=== PATIENT | male | born 1975 ===

== ENCOUNTER 2017-08-14 10:54 | Observation (INO) | payer MEDICAID, OTHER ==
[2017-08-14 10:54] VITALS: BMI 25.0
[2017-08-14 11:01] VITALS: BP 131/80; PULSE 66; RESP 18; TEMP 99; O2SAT 95
--- NOTE | 2017-08-14 11:59 | C.PDOC ---
History Of Present Illness 08/14/2017 Maciel Marrufo is a 41 y/o male, whose past medical history includes substance abuse, presents to the ED requesting a detoxification. Patient reports his last use was today at 3am. Patient also complains of right foot pain after stepping on a nail four days ago. He states pain is worse when walking. Patient denies fever,numbness, weakness, shortness of breath, vomiting , headache or other complaints. Patient notes his Tetanus shot is not up to date. Time Seen by Provider: 08/14/17 11:03 Chief Complaint (Nursing): Substance Abuse History Per: Patient History/Exam Limitations: no limitations Onset/Duration Of Symptoms: Hrs (8-10 hours ago) Current Symptoms Are (Timing): Still Present Modifying Factor(s): Narcotics Associated Symptoms: Other (right foot pain due to punctured wound) Past Medical History Reviewed: Historical Data, Nursing Documentation, Vital Signs Vital Signs: Last Vital Signs Temp 99 F 08/14/17 10:55 Pulse 66 08/14/17 10:55 Resp 18 08/14/17 10:55 BP 131/80 08/14/17 10:55 Pulse Ox 95 08/14/17 13:44 - Medical History PMH: Anxiety, Asthma, Bipolar Disorder, Depression, HTN Denies: Diabetes, Hepatitis, HIV, Chronic Kidney Disease, Seizures, Sexually Transmitted Disease - [facility] Procedures CLOSURE SKIN & SUBCUTANEOUS NEC (06/21/14) DETOXIFICATION SERVICES FOR SUBSTANCE ABUSE TREATMENT (12/02/16) GROUP DRYER FEEDER FOR SUBSTANCE ABUSE TREATMENT, PSYCHOEDUCATION (12/02/16) MASTOTOMY (10/27/13) Family History: States: Unknown Family Hx - Social History Hx Tobacco Use: No Hx Alcohol Use: No Hx Substance Use: Yes - Immunization History Hx Tetanus Toxoid Vaccination: No Hx Influenza Vaccination: No Hx Pneumococcal Vaccination: No Review Of Systems Constitutional: Negative for: Fever Cardiovascular: Negative for: Chest Pain Respiratory: Negative for: Shortness of Breath Gastrointestinal: Negative for: Vomiting Musculoskeletal: Positive for: Foot Pain (right foot pain ) Psych: Positive for: Withdrawal (detox request) Physical Exam - Physical Exam Appears: Well, No Acute Distress Skin: Normal Color, Warm, Dry Head: Atraumatic, Normacephalic Eye(s): bilateral: Normal Inspection, PERRL, EOMI Cardiovascular: Rhythm Regular Respiratory: Normal Breath Sounds Extremity: Normal ROM, No Swelling, Other (punctured wound on right foot. No erythema) Neurological/Psych: Oriented x3, Normal Speech Gait: Steady ED Course And Treatment O2 Sat by Pulse Oximetry: 95 (room air) Pulse Ox Interpretation: Normal Medical Decision Making Medical Decision Makin08/14/2017 Impression: 41 y/o male requesting detox. Last opiod use was today at 3am. Additionally has a punctured wound on right foot. NROM, no erythema or swelling. Plan: -- Cipro -- Adacel -- Reassess and disposition Progress Notes: ED OBSERVATION Discharge: Yes Date of observation admission: 08/14/17 Time of observation admission: 11:30 Disposition - Disposition Disposition: HOME/ ROUTINE Disposition Time: 13:44 Condition: GOOD - Clinical Impression Clinical Impression: Opiate dependence - Scribe Statement The provider has reviewed the documentation as recorded by the Scribe 08/14/2017 Scribe Attestation: Naz Blair MD Scribe Attestation: All medical record entries made by the Scribe were at my direction and personally dictated by me. I have reviewed the chart and agree that the record accurately reflects my personal performance of the history, physical exam, medical decision making, and the department course for this patient. I have also personally directed, reviewed, and agree with the discharge instructions and disposition.
== END 2017-08-14 13:46 | disposition home or self-care (01) ==
LOC: C.ER 10:54 → C.9OBSV 12:47
PROVIDERS: ADMIT Emergency Medicine; ATTEND Emergency Medicine
DX: F11.20 Opioid dependence, uncomplicated (principal); F31.9 Bipolar disorder, unspecified; I10 Essential (primary) hypertension; J45.909 Unspecified asthma, uncomplicated; F32.9 Major depressive disorder, single episode, unspecified; F41.9 Anxiety disorder, unspecified; S91.331A Puncture wound without foreign body, right foot, initial encounter; W45.0XXA Nail entering through skin, initial encounter; Z23 Encounter for immunization
CPT/HCPCS: 90471; 90715; 99283; G0378

== ENCOUNTER 2017-08-15 08:36 | Inpatient (IN) | payer MEDICAID, OTHER ==
[2017-08-15 08:36] VITALS: BMI 25.0
[2017-08-15 10:37] LABS: BASO # 0.1 K/uL (0.0-0.2); BASO % 0.9 % (0.0-2.0); EOS # 0.2 K/uL (0.0-0.7); HEMATOCRIT 40.9 % (35.0-51.0); LYMPH # 1.8 K/uL (1.0-4.3); MEAN CELL VOLUME 84.1 fL (80.0-94.0); MEAN CORPUSCULAR HEMOGLOBIN 28.7 pg (27.0-31.0); MEAN CORPUSCULAR HGB CONC 34.2 g/dL (33.0-37.0); MEAN PLATELET VOLUME 6.5 fL (7.2-11.7); MONO # 0.5 K/uL (0.0-0.8); NRBC % 0.1 % (0.0-2.0); WHITE BLOOD COUNT 7.2 K/uL (4.8-10.8)
[2017-08-15 10:38] LABS: RBC URINE 3 /hpf (0-3); URINE BACTERIA RARE (<OCC); URINE BILIRUBIN NEGATIVE (NEGATIVE); URINE BLOOD NEGATIVE (NEGATIVE); URINE COLOR Amber (YELLOW); URINE GLUCOSE (UA) NORMAL (Normal); URINE KETONE TRACE mg/dL (NEGATIVE); URINE LEUKOCYTE ESTERASE NEG Leu/uL (Negative); URINE PROTEIN 1+ mg/dL (NEGATIVE); WBC URINE 1 /hpf (0-5)
[2017-08-15 10:42] LABS: CHLORIDE 106 mmol/L (98-107)
[2017-08-15 10:43] LABS: POTASSIUM 3.7 mmol/L (3.6-5.2); SODIUM 141 mmol/L (132-148)
[2017-08-15 10:45] LABS: ALB/GLOB RATIO 1.2 (1.0-2.1); AST/SGOT 46 U/L (17-59); BILIRUBIN,TOTAL 0.5 mg/dL (0.2-1.3); CARBON DIOXIDE 24 mmol/L (22-30); GFR AFRICAN-AMERICAN > 60; TOTAL PROTEIN 7.4 g/dL (6.3-8.3)
[2017-08-15 10:46] LABS: ALKALINE PHOSPHATASE 97 U/L (38-126); ALT/SGPT 37 U/L (21-72); BLOOD UREA NITROGEN 13 mg/dL (9-20); GLUCOSE,RANDOM 160 mg/dL (75-110)
--- NOTE | 2017-08-15 10:55 | C.PDOC ---
History Of Present Illness 41 y/o male presents to ED requesting detox from heroin and Xanax. Last use of both was today at approx 03:00. Pt denies SI/HI, or physical complaints at this time. Time Seen by Provider: 08/15/17 09:11 Chief Complaint (Nursing): Psychiatric Evaluation History Per: Patient History/Exam Limitations: no limitations Onset/Duration Of Symptoms: Gradual Current Symptoms Are (Timing): Still Present Suicide/Self Injury Attempted (Context): None Modifying Factor(s): Narcotics, Other (xanax) Associated Symptoms: denies: Suicidal Thoughts, Suicidal Plan Involuntary Hold By: None Additional History Per: Patient Past Medical History Reviewed: Historical Data, Nursing Documentation, Vital Signs Vital Signs: Last Vital Signs Temp 97.8 F 08/19/17 08:54 Pulse 65 08/19/17 08:54 Resp 20 08/19/17 08:54 BP 132/84 08/19/17 08:54 Pulse Ox 97 08/19/17 10:29 - Medical History PMH: Anxiety, Asthma, Bipolar Disorder, Depression, HTN - [facility] Procedures CLOSURE SKIN & SUBCUTANEOUS NEC (06/21/14) DETOXIFICATION SERVICES FOR SUBSTANCE ABUSE TREATMENT (12/02/16) GROUP MAINTENANCE CHIEF FOR SUBSTANCE ABUSE TREATMENT, PSYCHOEDUCATION (12/02/16) MASTOTOMY (10/27/13) Family History: States: No Known Family Hx - Social History Hx Tobacco Use: No Hx Alcohol Use: No Hx Substance Use: Yes (heroin and xanax) - Immunization History Hx Tetanus Toxoid Vaccination: No Hx Influenza Vaccination: No Hx Pneumococcal Vaccination: No Review Of Systems Except As Marked, All Systems Reviewed And Found Negative. Constitutional: Negative for: Fever, Chills Cardiovascular: Negative for: Chest Pain, Palpitations Respiratory: Negative for: Cough, Shortness of Breath Gastrointestinal: Negative for: Nausea, Vomiting, Abdominal Pain Musculoskeletal: Negative for: Neck Pain, Back Pain Skin: Negative for: Rash, Bruising Neurological: Negative for: Headache, Dizziness Psych: Negative for: Suicidal ideation Physical Exam - Physical Exam Appears: Well, Non-toxic, No Acute Distress Skin: Warm, Dry Head: Normacephalic Eye(s): bilateral: Normal Inspection Oral Mucosa: Moist Neck: Supple Cardiovascular: Rhythm Regular Respiratory: Normal Breath Sounds, No Accessory Muscle Use, No Rales, No Rhonchi , No Wheezing Gastrointestinal/Abdominal: Normal Exam, Bowel Sounds, Soft, No Tenderness Extremity: Normal ROM Extremity: Bilateral: Atraumatic, Normal Color And Temperature, Normal ROM Neurological/Psych: Oriented x3 Gait: Steady ED Course And Treatment - Laboratory Results Result Diagrams: 08/17/17 07:25 08/17/17 07:25 O2 Sat by Pulse Oximetry: 97 (on RA) Pulse Ox Interpretation: Normal Progress Note: Blood work, UA, UDS ordered and reviewed. Patient given Nicotine patch. He later complained of nausea and some body aches - PO Zofran and Motrin given. 12:04pm- Patient medically cleared. Pending crisis. 12:20pm - Patient accepted for detox admission by Dr. ivey. Reevaluation Time: 12:00 Reassessment Condition: Improved Disposition - Disposition Disposition: HOSPITALIZED Disposition Time: 12:23 Condition: STABLE - Clinical Impression Clinical Impression: Heroin dependence, Benzodiazepine dependence - Scribe Statement The provider has reviewed the documentation as recorded by the Scribe Roz Dickson All medical record entries made by the Scribe were at my direction and personally dictated by me. I have reviewed the chart and agree that the record accurately reflects my personal performance of the history, physical exam, medical decision making, and the department course for this patient. I have also personally directed, reviewed, and agree with the discharge instructions and disposition. Decision To Admit - Pt Status Changed To: Hospital Disposition Of: Inpatient - Admit Certification Admit to Inpatient:: After my assessment, the patient will require hospitalization for at least two midnights. This is because of the severity of symptoms shown, intensity of services needed, and/or the medical risk in this patient being treated as an outpatient. - InPatient: Physician Admission Certification: I certify that this patient requires 2 or more midnights of care for the following reason:: see notes - . Bed Request Type: Detox Admitting Physician: Venu Ivey Patient Diagnosis: Heroin dependence, Benzodiazepine dependence
[2017-08-15] MEDS ORDERED: Aluminum Hydroxide/Magnesium Hydroxide Susp (30 mL) PO PRN (13:59)
--- NOTE | 2017-08-15 14:58 | PCM.BM ---
<Mena Honeycutt - Last Filed: 08/15/17 14:55> Treatment assets and liabiliti Patient Assests: ADL independent, negotiates basic needs Patient Liabilities: relationship conflicts, substance abuse - Milieu Protocol Maintain good personal hygiene: daily Encourage regular showers, daily Remind patient to perform daily oral care, daily Assist patient to perform ADL's, every shift Encourage regular showers, every shift Remind patient to perform daily oral care, every shift Assist patient to perform ADL's Maintain personal safety: daily Educate patient to report safety concerns to staff, daily Monitor environment for contraband/sharps, every shift Educate patient to report safety concerns to staff, every shift Monitor environment for contraband/sharps Medication safety: Monitor for expected outcome, potential side effects: daily, every shift, Assess barriers to learning: daily, every shift, Assess readiness for medication education: daily, every shift <Venu Coffman - Last Filed: 08/16/17 09:46> - Diagnosis (1) Opioid use disorder, severe, dependence Status: Acute Interventions: 08/16/17 09:47 * Assess 7x/week regarding severity of withdrawal * Educate regarding risks, benefits, side effects and alternatives of medications * Use Motivational Interviewing for abstinence * Use CBT for relapse prevention * Medication management for withdrawal symptoms * Encourage medication assisted treatment * (2) Sedative, hypnotic or anxiolytic use disorder, severe, dependence Status: Acute Interventions: 08/16/17 09:47 * Assess 7x/week regarding severity of withdrawal * Educate regarding risks, benefits, side effects and alternatives of medications * Use Motivational Interviewing for abstinence * Use CBT for relapse prevention * Medication management for withdrawal symptoms * Encourage medication assisted treatment * <Abigail Barahona - Last Filed: 08/16/17 11:10> Family Contact Family involvement: Famliy/SO not involved Family contact: Patient agrees to contact - Goals for Treatment Patient goals for treatment: Complete detox and transition to outpatient co- occurring tx. with Suboxone for opioid use disorder-severe. Discharge/Continuing Care - Education Needs Education Needs: Patient Medication, Patient Diagnosis/Disease Process, Patient Coping Skills, Patient Anger Management skills, Patient Placement options, Patient Community resources - Discharge Discharge Criteria: Free of agitation, Normal sleep pattern, No longer exhibiting s/s of withdrawal, Reduction of target symptoms Discharge to:: With Family
[2017-08-16] MEDS ORDERED: Buprenorphine Hydrochloride 2 mg SL ONE ×5 (10:45→19:17)
--- NOTE | 2017-08-16 12:50 | PCM.PSYCH ---
Initial Psychiatric Evaluation - Initial Psychiatric Evaluation Type of Admission: Voluntary Legal Status: Capacity History of Present Illness and Precipitating Events: The pt is seen, chart reviewed and case discussed. He is known from previous admission. Patient is a 41 year old male, single, has 3 kids who live with their mother, is on disability, and lives alone in an apartment in [place]. He reports almost the same story last November: a dr didn't prescribe his suboxone and he is here now. He claims Dr. Zambrano, this time, allegedly refused b /c he came positive from the opioids he used in detox here (??). Of note, he used subutex which doesn't come as opioid in [facility]. Nevertheless this will be verified with [facility], and he also added that he has an appointment on Tuesday. He now uses "50" bags IV and was starting to get into withdrawal when seen this AM. Pt also admits that he uses 6 mg of Xanax a day, but states that it was originally prescribed from a psychiatrist in [place], [place]. Pt denies current use of Marijuana, alcohol, cocaine, and other illicit substances. Pt states that he has tried experimenting multiple drugs in the past. Smokes 2 ppd Past Psychiatric History: Bipolar d/o, Depression. He was diagnosed with personality d/o by the aligner typewriter previously and today, too, he displays antisocial/ borderline behavior on the floor: argumentative, splitting, help-rejecting, mood swings, anger, breaking rules... Medications: Seroquel 100mg bid, Trazadone 200mg QHS, Pristiq but he was non- compliant IP Psychiatric Facility: Once when he was 12 years old Family History: Father and brother were drug abusers, but are no longer using Medical History: Asthma, Hep C, Meniscus tears in past Allergies: Seafood Current Medications: Active Medications Generic Name Dose Route Start Last Admin Trade Name Freq PRN Reason Stop Dose Admin Al Hydrox/Mg Hydrox/Simethicone 30 ml 08/15/17 13:59 Maalox 30 Ml PO TID PRN Indigestion / Heartburn Chlordiazepoxide 25 mg 08/15/17 18:00 08/16/17 11:10 Librium PO 08/19/17 17:59 25 mg Q6 KRISTY Administration Taper Clonidine HCl 0.1 mg 08/15/17 13:59 Catapres PO Q8 PRN COWS Score More or Equal to 5 Hydroxyzine HCl 50 mg 08/15/17 14:01 08/15/17 17:50 Atarax PO 50 mg Q6H PRN Administration Anxiety Ibuprofen 600 mg 08/15/17 14:01 Motrin Tab PO Q6H PRN Pain, moderate (4-7) Loperamide HCl 2 mg 08/15/17 13:59 Imodium PO Q8 PRN Diarrhea Nicotine 1 patch 08/15/17 10:30 08/16/17 10:54 Nicoderm Cq TD 1 patch DAILY KRISTY Administration Ondansetron HCl 4 mg 08/15/17 13:59 Zofran Tab PO Q8 PRN Nausea/Vomiting Quetiapine Fumarate 100 mg 08/15/17 22:15 08/15/17 22:18 Seroquel PO Not Given HS KRISTY Trazodone HCl 100 mg 08/15/17 14:01 Desyrel PO HS PRN Insomnia Past Psychiatric History - Past Psychiatric History Previous Treatment History: Inpatient (age 12) Pertinent Medical Hx (Current Medical&Sleep Prob, Allergies): Allergies Allergy/AdvReac Type Severity Reaction Status Date / Time seafood Allergy Uncoded 08/15/17 08:55 Alprazolam [Xanax] 2 mg PO TID 03/01/16 Review of Systems - Neurological Neurological: UNREMARKABLE - Psychiatric Psychiatric: Abnormal Sleep Pattern, Difficulty Concentrating, Irritability, Mood Swings. absent: Hallucinations, Homicidal Ideation, Paranoia, Suicidal Ideation Mental Status Examination - Personal Presentation Personal Presentation: Looks stated age - Affect Affect: Constricted - Motor Activity Motor Activity: Psychomotor Agitation - Reliability in Providing Information Reliability in Providing Information: Good - Speech Speech: Organized - Mood Mood: Anxious, Other (angry) - Formal Thought Process Formal Thought Process: No Impairment - Cognitive Functions Orientation: Person, Place, Situation, Time Sensorium: Alert Attention/Concentration: Attentive Estimate of Intelligence: Average Judgement: Intact, as evidence by: Insight regarding need for hospitalization Memory: Recent intact, as evidence by: Ability to recall events of the day, Remote intact, as evidenced by: Abilit to recall sig. life events - Risk Risk: Withdrawal, Diminished functioning - Strength & Assets Inventory Strength & Assets Inventory: Cooperative DSM 5 DX - DSM 5 DSM 5 Diagnosis: Primary: Opioid withdrawal, uncomplicated Opioid use d/o - severe Sedative, hypnotic or anxiolytic use d/o, severe Bipolar d/o unspecified Personality d/o - unspecified r/o antisocial/borderline PDs. - Recommended/Plan of Treatment Treatment Recommendations and Plan of Treatment: Subutex detox As needed medications Gabapentin for augmentation Attend groups and activities Supportive therapy and psychoeducation AL for abstinence CBT for relapse prevention Encourage MAT again Refer to rehab Attend self-help groups as well 34 min Projected ELOS: 5 days Prognosis: fair due to [place] Discharge Plan and Discharge Criteria: No wdw sx Refer to rehab or MAT - Smoking Cessation Smoking Cessation Initiated: Yes
--- NOTE | 2017-08-16 17:43 | PCM.RRT ---
PILOT SUBMERSIBLE Nurses Assessment - Situation Date: 08/16/17 Time PILOT SUBMERSIBLE was called: 17:11 PILOT SUBMERSIBLE Responder Arrival Time:: 17:12 PILOT SUBMERSIBLE Location:: Med/Detox Room Number: 760A PILOT SUBMERSIBLE Reason for Call: Change in Mental Status (syncope, fall, ) PILOT SUBMERSIBLE Called By: RN - Neurological Status (Select all that apply): Confused - Constitutional Appears: Confused - Head Head Exam: NORMAL INSPECTION, NORMOCEPHALIC - Eyes Eye Exam: EOMI, Normal appearance, PERRL - Respiratory Exam Respiratory Exam: Clear to Ausculation Bilateral, NORMAL BREATHING PATTERN. absent: Decreased Breath Sounds - Cardiovascular Exam Cardiovascular Exam: REGULAR RHYTHM - GI/Abdominal Exam GI & Abdominal Exam: Soft, Normal Bowel Sounds. absent: Distended, Tenderness - Neurological Exam Neurological Exam: Alert, Awake, Oriented x3 Additional exam: Walked to bed with assistance - Extremities Exam Extremities Exam: Normal Inspection. absent: Pedal Edema, Tenderness Plan - Assessment of Findings&Treatment Plan House Doctor responding to PILOT SUBMERSIBLE Patient was ambulating when the nurse heard the patient fall. He was found supine. Nurse denied any convulsions, shaking, tongue biting, urinary or bowel incontinence. Patient was disoriented on exam. He was not aware that he fell. He stated he walked and felt dizzy and next thing he knew he was on the floor. During exam, patient became nauseous, vomited, nonbloody, nonbilious. Zofran ODT was administered. Patient admitted for opioid withdrawal. Vitals were stable. Neuro Exam intact, generalized weakness, was walked to bed with assistance. Vitals and labs reviewed from day prior - WNL Head CT w/o contrast ordered CBC, CMP, MAG, PHOS, PROCAL STAT AM labs ordered for tomorrow Baudilio WARNER, PGY-1
[2017-08-16 17:47] LABS: CHLORIDE 105 mmol/L (98-107)
[2017-08-16 17:48] LABS: POTASSIUM 3.8 mmol/L (3.6-5.2); SODIUM 139 mmol/L (132-148)
[2017-08-16 17:50] LABS: ALB/GLOB RATIO 1.2 (1.0-2.1); ALKALINE PHOSPHATASE 96 U/L (38-126); ALT/SGPT 38 U/L (21-72); AST/SGOT 48 U/L (17-59); BASO % 0.4 % (0.0-2.0); BILIRUBIN,TOTAL 0.9 mg/dL (0.2-1.3); BLOOD UREA NITROGEN 13 mg/dL (9-20); CARBON DIOXIDE 21 mmol/L (22-30); EOS % 0.6 % (0.0-4.0); GFR AFRICAN-AMERICAN > 60; GLUCOSE,RANDOM 108 mg/dL (75-110); HEMATOCRIT 43.5 % (35.0-51.0); LYMPH # 1.3 K/uL (1.0-4.3); LYMPH % 15.2 % (20.0-40.0); MEAN CELL VOLUME 82.4 fL (80.0-94.0); MEAN CORPUSCULAR HEMOGLOBIN 28.6 pg (27.0-31.0); MEAN CORPUSCULAR HGB CONC 34.7 g/dL (33.0-37.0); MEAN PLATELET VOLUME 6.5 fL (7.2-11.7); MONO # 0.4 K/uL (0.0-0.8); MONO % 5.3 % (0.0-10.0); PHOSPHOROUS 3.2 mg/dL (2.5-4.5); RED CELL DISTRIBUTION WIDTH 13.5 % (11.5-14.5); TOTAL PROTEIN 7.8 g/dL (6.3-8.3); WHITE BLOOD COUNT 8.4 K/uL (4.8-10.8)
[2017-08-16 17:51] LABS: CALCIUM 9.3 mg/dl (8.6-10.4); MAGNESIUM 1.6 mg/dL (1.6-2.3)
--- NOTE | 2017-08-16 19:31 | CT ---
EXAM: CT Head Without Intravenous Contrast EXAM DATE/TIME: Exam ordered 08/16/2017 5:15 PM CLINICAL HISTORY: 41 years old, male; Condition or disease; Headache; Tension; Additional info: Syncope TECHNIQUE: Axial computed tomography images of the head/brain without intravenous contrast. All CT scans at this facility use one or more dose reduction techniques, viz.: automated exposure control; ma/kV adjustment per patient size (including targeted exams where dose is matched to indication; i.e. head); or iterative reconstruction technique. COMPARISON: No relevant prior studies available. FINDINGS: Brain: Unremarkable. No hemorrhage. No significant white matter disease. No edema. Ventricles: Unremarkable. No ventriculomegaly. Bones/joints: Unremarkable. No acute fracture. Soft tissues: Unremarkable. Sinuses: There because of thickening is noted within the ethmoid air cells bilaterally. . Mucosal thickening is noted within the maxillary sinuses bilaterally. Mastoid air cells: Unremarkable as visualized. No mastoid effusion. Orbits: There's an eyebrow piercing on the left. Nasopharynx: deviation of the nasal septum towards the left. Dental: The patient is edentulous. IMPRESSION: 1. No acute findings intracranially 2. Chronic sinusitis involving the ethmoid and maxillary sinuses.
[2017-08-17] MEDS ORDERED: Buprenorphine Hydrochloride 2 mg SL ONE ×2 (02:30→03:56)
[2017-08-17 07:33] LABS: BASO # 0.1 K/uL (0.0-0.2); BASO % 0.8 % (0.0-2.0); EOS % 0.1 % (0.0-4.0); HEMATOCRIT 42.8 % (35.0-51.0); LYMPH # 1.3 K/uL (1.0-4.3); LYMPH % 13.8 % (20.0-40.0); MEAN CELL VOLUME 81.4 fL (80.0-94.0); MEAN CORPUSCULAR HEMOGLOBIN 28.4 pg (27.0-31.0); MEAN CORPUSCULAR HGB CONC 34.9 g/dL (33.0-37.0); MEAN PLATELET VOLUME 6.6 fL (7.2-11.7); MONO # 0.5 K/uL (0.0-0.8); MONO % 5.3 % (0.0-10.0); RED CELL DISTRIBUTION WIDTH 13.5 % (11.5-14.5); WHITE BLOOD COUNT 9.4 K/uL (4.8-10.8)
[2017-08-17 08:09] LABS: CHLORIDE 100 mmol/L (98-107); POTASSIUM 3.8 mmol/L (3.6-5.2); SODIUM 140 mmol/L (132-148)
[2017-08-17 08:11] LABS: ALB/GLOB RATIO 1.2 (1.0-2.1); ALKALINE PHOSPHATASE 83 U/L (38-126); AST/SGOT 38 U/L (17-59); BILIRUBIN,TOTAL 0.8 mg/dL (0.2-1.3); CARBON DIOXIDE 24 mmol/L (22-30); GFR AFRICAN-AMERICAN > 60; TOTAL PROTEIN 7.7 g/dL (6.3-8.3)
[2017-08-17 08:12] LABS: ALT/SGPT 31 U/L (21-72); BLOOD UREA NITROGEN 16 mg/dL (9-20); CALCIUM 9.2 mg/dl (8.6-10.4); GLUCOSE,RANDOM 122 mg/dL (75-110); PHOSPHOROUS 3.2 mg/dL (2.5-4.5)
[2017-08-17 08:13] LABS: MAGNESIUM 1.7 mg/dL (1.6-2.3)
[2017-08-17] MEDS ORDERED: Buprenorphine Hydrochloride 2 mg SL SCH (09:30)
[2017-08-17] MEDS: Buprenorphine Hydrochloride 2 mg SL SCH ×3 (10:42→17:38)
--- NOTE | 2017-08-17 15:00 | PCM.PYCHPN ---
Psychiatric Progress Note - Psychiatric Progress Note Patient seen today, length of contact: 16 min Patient Chief Complaint: "I was throwing up all night" Problems Identified/Issues Discussed: Pt is seen, chart reviewed, case discussed with staff. Pt is very lethargic with depressed mood and has to be coaxed to get out of bed and speak with doctor. He reports that he tried to take his medications but immediately vomited all of them up, stating "I couldn't help it." He reports that he wasn't able to sleep all night due to severe nausea and vomiting. He denies symptoms of benzodiazepine withdrawal at this time. He needs more time to stabilize. He requested that his Subutex be given as three individual pills at different times throughout the day because "they are too much for my mouth." Support and psychoeducation given, CBT and ID used briefly. After care discussed. He plans to follow up with [facility]. Medication Change: Yes (Detox medications change daily) Medical Record Reviewed: Yes Mental Status Examination - Cognitive Function Orientation: Person, Place, Situation, Time Memory: Intact Attention: Poor Concentration: Poor Association: WNL Fund of Knowledge: WNL - Mood Mood: Depressed, Other (Agitated) - Affect Affect: Constricted - Speech Speech: Appropriate - Formal Thought Process Formal Thought Process: No Impairment - Suicidal Ideation Suicidal Ideation: No - Homicidal Ideation Homicidal Ideation: No Goal/Treatment Plan - Goal/Treatment Plan Need for Continued Stay: Discharge may exacerbated symptoms, Severe functional impairment Progress Toward Problem(s) and Goals/Treatment Plan: Subutex detox Librium detox As needed medications Gabapentin for augmentation Attend groups and activities Supportive therapy and psychoeducation ID for abstinence CBT for relapse prevention Encourage MAT again Refer to rehab Attend self-help groups as well 16 min Estimated Date of D/C: 08/19/17 (Pt needs more time to stabilize) - Smoking Cessation Smoking Cessation Initiated: No
[2017-08-18] MEDS: Buprenorphine Hydrochloride 2 mg SL SCH ×2 (09:47→18:34)
--- NOTE | 2017-08-18 11:22 | PCM.PYCHPN ---
Psychiatric Progress Note - Psychiatric Progress Note Patient seen today, length of contact: 15 min Patient Chief Complaint: "I'm starting to feel better" Problems Identified/Issues Discussed: Pt is seen, chart reviewed, case discussed with staff. Pt is compliant with medications and reports no side effects. He was able to successfully get all of his meds down yesterday without vomiting. He continues to report of some nausea and vomiting, though his sleep is improving. Symptoms are improving but pt needs more time to stabilize. Support and psychoeducation given, CBT and GA used briefly. After care discussed. He is prepared for discharge on Tuesday and will go directly to [facility] where he will attend substance use groups and use MAT. He states he is "more prepared" to stay clean since last detox. Medication Change: Yes (Detox medications change daily) Medical Record Reviewed: Yes Mental Status Examination - Cognitive Function Orientation: Person, Place, Situation, Time Memory: Intact Attention: WNL Concentration: WNL Association: WNL Fund of Knowledge: WNL - Mood Mood: Depressed - Affect Affect: Constricted - Speech Speech: Appropriate - Formal Thought Process Formal Thought Process: No Impairment - Suicidal Ideation Suicidal Ideation: No - Homicidal Ideation Homicidal Ideation: No Goal/Treatment Plan - Goal/Treatment Plan Need for Continued Stay: Discharge may exacerbated symptoms, Severe functional impairment Progress Toward Problem(s) and Goals/Treatment Plan: Subutex detox Librium detox As needed medications Gabapentin for augmentation Attend groups and activities Supportive therapy and psychoeducation GA for abstinence CBT for relapse prevention Encourage MAT again Refer to rehab Attend self-help groups as well 15 min Estimated Date of D/C: 08/19/17 (Pt needs more time to stabilize)
[2017-08-18] MEDS ORDERED: Buprenorphine Hydrochloride 2 mg SL ONE (14:00)
[2017-08-19 08:48] LABS: RBC URINE 1 /hpf (0-3); URINE BACTERIA RARE (<OCC); URINE BILIRUBIN NEGATIVE (NEGATIVE); URINE BLOOD 1+ (NEGATIVE); URINE COLOR Amber (YELLOW); URINE GLUCOSE (UA) NORMAL (Normal); URINE KETONE NEGATIVE (NEGATIVE); URINE LEUKOCYTE ESTERASE NEG Leu/uL (Negative); URINE PROTEIN NEGATIVE (NEGATIVE); WBC URINE 5 /hpf (0-5)
[2017-08-19] MEDS: Buprenorphine Hydrochloride 2 mg SL SCH (08:52)
--- NOTE | 2017-08-19 08:52 | PCM.PYCHDC ---
Mental Status Examination - Mental Status Examination Orientation: Person, Place, Situation, Time Memory: Intact Mood: Neutral Affect: Depressed Speech: Appropriate Attention: WNL Concentration: WNL Association: WNL Fund of Knowledge: WNL Formal Thought Process: No Impairment Suicidal Ideation: No Current Homicidal Ideation?: No Discharge Summary - Discharge Note Reason for Hospitalization: Long history of opioid use disorder with desire for detox Psychiatric History (includes Medical, Family, Personal Hx): Bipolar disoder, depression, personality disorder Laboratory Data: Abnormal Lab Results 08/19/17 08:17 Urine Color [place] Urine Clarity Hazy Urine pH 5.0 Ur Specific [place] 1.026 Urine Protein Negative Urine Glucose (UA) Normal Urine Ketones Negative Urine Blood 1+ H Urine Nitrate Negative Urine Bilirubin Negative Urine Urobilinogen 4.0 Ur Leukocyte Esterase Neg Urine WBC (Auto) 5 Urine RBC (Auto) 1 Ur Squamous Epith Cells 1 Urine Bacteria Rare Consultations:: List each consultation separately and include: 1. Reason for request. 2. Findings. 3. Follow-up Summary of Hospital Course include:: 1. Description of specific treatment plan utilized for patients during their course of treatmen. 2. Summarize the time- course for resolution of acute symptoms and/or regressed behaviors. 3. Describe issues identified and worked on during hospitalization. 4. Describe medication utilized. 5. Describe medical problems identified and treated. 6. Reassessment of suicide risk Summary of Hospital Course: Pt was admitted and started on treatment with psychotherapy, support, psychoeducation and medications. RI and CBT used. Pt attended groups and activities as well as milieu therapy. All the risks and benefits of medications were discussed and pt understood and agreed. Pt improved with the treatment provided. Pt continues to report some nausea but overall OK. He admitted that he has 8 of the 8 mg subox films at home and that he "could find anytime." [facility] has [facility] but will not see the dr right away. He asked for a last day Utox which again came positive. He was hoping for a negative urine to show to [facility]. He is advised to not use any subs without dr control. He was irate and demanding initially but then calmed down. - Final Diagnosis (DSM 5) Condition upon Discharge: STABLE DSM 5: Opioid use disorder, severe Opioid withdrawal Bzkguxkr-zdcfuuur-qzwtussnkm use disorder, severe Bipolar disorder, unspecified Personality disorder, unspecified Disposition: HOME/ ROUTINE Follow-up Treatment Plan: Continue below medications after discharge. Follow after care as discussed. Use relapse prevention skills. Return to ER or call 911 if suicidal, homicidal or symptoms relapse. Stay away from stress, alcohol and drugs. See primary doctor once a year. 16 min Prescriptions/Medication Reconciliation: Nicotine 21 mg/24 hr [Nicoderm Cq] 1 patch TD DAILY #30 patch QUEtiapine [Seroquel] 200 mg PO HS #30 tab - Smoking Cessation Smoking Cessation Medication prescribed: Yes - Antipsychotic Medications Pt discharged on 2 or more routine antipsychotic medications: No
[2017-08-19 08:57] VITALS: BP 132/84; PULSE 65; RESP 20; TEMP 97.8
[2017-08-19 09:55] VITALS: O2SAT 97
== END 2017-08-19 09:05 | disposition home or self-care (01) | DRG 744 ==
LOC: C.ER 08:36 → C.7D 12:23
PROVIDERS: ADMIT Psychiatry & Neurology Psychiatry; ATTEND Psychiatry & Neurology Psychiatry
PROC: HZ2ZZZZ Detoxification Services for Substance Abuse Treatment (ICD-10-PCS; principal; 2017-08-16)
PROC: HZ52ZZZ Individual Psychotherapy for Substance Abuse Treatment, Cognitive-Behavioral (ICD-10-PCS; 2017-08-16)
PROC: HZ42ZZZ Group Counseling for Substance Abuse Treatment, Cognitive-Behavioral (ICD-10-PCS; 2017-08-16)
PROC: HZ59ZZZ Individual Psychotherapy for Substance Abuse Treatment, Supportive (ICD-10-PCS; 2017-08-16)
PROC: HZ56ZZZ Individual Psychotherapy for Substance Abuse Treatment, Psychoeducation (ICD-10-PCS; 2017-08-16)
PROC: HZ46ZZZ Group Counseling for Substance Abuse Treatment, Psychoeducation (ICD-10-PCS; 2017-08-16)
DX: F11.23 Opioid dependence with withdrawal (principal); B19.20 Unspecified viral hepatitis C without hepatic coma; F13.20 Sedative, hypnotic or anxiolytic dependence, uncomplicated; F31.9 Bipolar disorder, unspecified; F60.2 Antisocial personality disorder; F60.3 Borderline personality disorder; F17.210 Nicotine dependence, cigarettes, uncomplicated; Z91.14 Patient's other noncompliance with medication regimen; J45.909 Unspecified asthma, uncomplicated

== ENCOUNTER 2017-11-25 07:54 | Emergency (ER) | payer MEDICAID, OTHER ==
[2017-11-25 08:00] VITALS: BMI 26.4
[2017-11-25 08:10] VITALS: BP 129/80; RESP 18
[2017-11-25 09:41] LABS: BASO # 0.1 K/uL (0.0-0.2); BASO % 0.8 % (0.0-2.0); EOS # 0.2 K/uL (0.0-0.7); EOS % 2.3 % (0.0-4.0); LYMPH # 2.1 K/uL (1.0-4.3); LYMPH % 22.6 % (20.0-40.0); MEAN CELL VOLUME 82.5 fL (80.0-94.0); MEAN CORPUSCULAR HEMOGLOBIN 28.8 pg (27.0-31.0); MEAN CORPUSCULAR HGB CONC 34.9 g/dL (33.0-37.0); MEAN PLATELET VOLUME 6.3 fL (7.2-11.7); MONO # 0.7 K/uL (0.0-0.8); MONO % 7.1 % (0.0-10.0); NEUT # 6.2 K/uL (1.8-7.0); NEUT % 67.2 % (50.0-75.0); RBC 4.86 Mil/uL (4.40-5.90); RED CELL DISTRIBUTION WIDTH 13.4 % (11.5-14.5); WHITE BLOOD COUNT 9.2 K/uL (4.8-10.8)
--- NOTE | 2017-11-25 10:08 | C.PDOC ---
History Of Present Illness 42 year old male presents to the ED for a heroin detox. He reports that he last used early this morning. Patient offers no other medical complaints. Time Seen by Provider: 11/25/17 08:07 Chief Complaint (Nursing): Substance Abuse History Per: Patient History/Exam Limitations: no limitations Onset/Duration Of Symptoms: Hrs Current Symptoms Are (Timing): Still Present Suicide/Self Injury Attempted (Context): None Modifying Factor(s): Narcotics (heroin) Severity: None Recent travel outside of the [place]: No Past Medical History Reviewed: Historical Data, Nursing Documentation, Vital Signs Vital Signs: Last Vital Signs Temp 97.8 F 11/25/17 11:38 Pulse 74 11/25/17 11:38 Resp 18 11/25/17 11:38 BP 129/80 11/25/17 11:38 Pulse Ox 95 11/25/17 12:09 - Medical History PMH: Anxiety, Asthma, Bipolar Disorder, Depression, Hepatitis, HTN Denies: Diabetes, HIV, Chronic Kidney Disease, Seizures, Sexually Transmitted Disease - [facility] Procedures CLOSURE SKIN & SUBCUTANEOUS NEC (06/21/14) DETOXIFICATION SERVICES FOR SUBSTANCE ABUSE TREATMENT (08/15/17) GROUP WHEELCHAIR VAN DRIVER FOR SUBSTANCE ABUSE TREATMENT, PSYCHOEDUCATION (08/15/17) GROUP WHEELCHAIR VAN DRIVER FOR SUBSTANCE ABUSE, COGNITIVE BEHAVIORAL (08/15/17) INDIV PSYCHOTHERAPY FOR SUBSTANCE ABUSE TREATMENT, SUPPORT (08/15/17) INDIV PSYCHOTHERAPY FOR SUBSTANCE ABUSE, COGNITIV BEHAVIORAL (08/15/17) INDIV PSYCHOTHERAPY FOR SUBSTANCE ABUSE, PSYCHOEDUCATION (08/15/17) MASTOTOMY (10/27/13) Family History: States: Unknown Family Hx - Social History Hx Tobacco Use: Yes (Heavy Smoker > 10 Cigarettes Daily; 40 cigarrettes a day) Hx Alcohol Use: No Hx Substance Use: Yes (heroin) - Immunization History Hx Tetanus Toxoid Vaccination: No Hx Influenza Vaccination: No Hx Pneumococcal Vaccination: No Review Of Systems Constitutional: Positive for: Other (Heroin Detox). Negative for: Fever, Chills Physical Exam - Physical Exam Appears: Well, No Acute Distress Skin: Normal Color, Warm, Dry, No Rash Head: Atraumatic, Normacephalic, No Tenderness Eye(s): bilateral: Normal Inspection, PERRL, EOMI Ear(s): Bilateral: Normal Nose: Normal Oral Mucosa: Moist, No Drooling Tongue: Normal Appearing Lips: Normal Appearing Teeth: Normal Dentition Gingiva: Normal Appearing Throat: Normal, No Erythema, No Exudate Neck: Normal, Normal ROM, No Step Off Deformity, Supple Lymphatic: Normal Exam, No Adenopathy Chest: Symmetrical, No Deformity, No Tenderness Cardiovascular: Rhythm Regular, No Murmur Respiratory: Normal Breath Sounds, No Rales, No Rhonchi, No Wheezing Gastrointestinal/Abdominal: Normal Exam, Bowel Sounds, Soft, No Tenderness, No Mass, No Rebound Back: Normal Inspection, No CVA Tenderness, No Muscle Spasm Extremity: Normal ROM, No Swelling Extremity: Bilateral: Atraumatic Neurological/Psych: Oriented x3, Normal Speech, Normal Cognition, Normal Motor Gait: Steady ED Course And Treatment - Laboratory Results Result Diagrams: 11/25/17 09:36 11/25/17 09:36 O2 Sat by Pulse Oximetry: 95 (RA) Pulse Ox Interpretation: Normal Medical Decision Making Medical Decision Makin Initial Impression 42 y/o male presenting for heroin detox Initial Plan: * Drug Screen * Urinalysis * Reevaluation Patient states that he does not want to wait any longer for detox and is requesting to leave. Crisis team have spoken to the patient about staying for detox admission but the patient still refuses. Disposition - Disposition Referrals: [facility] [Outside] Disposition: HOME/ ROUTINE Disposition Time: 12:10 Condition: GOOD Additional Instructions: Follow up with the medical doctor within 1-2 days. Return if worsened. Instructions: Narcotic Abuse (ED) Forms: [facility] (Danish) - Clinical Impression Clinical Impression: Drug abuse, Opiate dependence - Scribe Statement The provider has reviewed the documentation as recorded by the Moeibrocael Osullivan All medical record entries made by the Moeibrocael were at my direction and personally dictated by me. I have reviewed the chart and agree that the record accurately reflects my personal performance of the history, physical exam, medical decision making, and the department course for this patient. I have also personally directed, reviewed, and agree with the discharge instructions and disposition.
[2017-11-25 10:10] LABS: ALB/GLOB RATIO 1.1 (1.0-2.1); ALBUMIN 4.3 g/dL (3.5-5.0); ALT/SGPT 30 U/L (21-72); AST/SGOT 43 U/L (17-59); BLOOD UREA NITROGEN 20 mg/dL (9-20); CALCIUM 8.7 mg/dl (8.6-10.4); GFR AFRICAN-AMERICAN > 60; GFR NON-AFRICAN AMERICAN > 60
[2017-11-25 10:45] LABS: URINE BILIRUBIN NEGATIVE (NEGATIVE); URINE BLOOD NEGATIVE (NEGATIVE); URINE CLARITY Clear (Clear); URINE COLOR Amber (YELLOW); URINE GLUCOSE (UA) NORMAL (Normal); URINE LEUKOCYTE ESTERASE NEG Leu/uL (Negative); URINE NITRATE NEGATIVE (NEGATIVE); URINE PROTEIN NEGATIVE (NEGATIVE)
[2017-11-25 11:23] LABS: BARBITURATES, UR NEGATIVE (NEGATIVE); BENZODIAZEPINES, UR NEGATIVE (NEGATIVE); PHENCYCLIDINE, UR NEGATIVE (NEGATIVE)
[2017-11-25 11:26] LABS: OPIATES, UR POSITIVE (NEGATIVE)
[2017-11-25 11:39] VITALS: PULSE 74; TEMP 97.8
[2017-11-25 12:10] VITALS: O2SAT 95
== END 2017-11-25 12:11 | disposition home or self-care (01) ==
LOC: C.ER 07:54
DX: F11.20 Opioid dependence, uncomplicated (principal); F41.9 Anxiety disorder, unspecified; I10 Essential (primary) hypertension; F31.9 Bipolar disorder, unspecified; F17.210 Nicotine dependence, cigarettes, uncomplicated

== ENCOUNTER 2017-11-28 14:40 | Inpatient (IN) | payer MEDICAID, OTHER ==
[2017-11-28 14:41] VITALS: BMI 26.4
--- NOTE | 2017-11-28 15:43 | C.PDOC ---
History Of Present Illness 42 y/o male presents to ED requesting heroin detox and with complaints of onset nausea. Patient states last used was 12pm today and denies chest pain, sob, vomiting, back pain or any other complaints at this time. Time Seen by Provider: 11/28/17 15:29 Chief Complaint (Nursing): Substance Abuse History Per: Patient History/Exam Limitations: no limitations Onset/Duration Of Symptoms: Days Current Symptoms Are (Timing): Still Present Suicide/Self Injury Attempted (Context): None Past Medical History Reviewed: Historical Data, Nursing Documentation, Vital Signs Vital Signs: Last Vital Signs Temp 98.7 F 11/28/17 15:17 Pulse 98 H 11/28/17 15:17 Resp 20 11/28/17 15:17 BP 125/78 11/28/17 15:17 Pulse Ox 95 11/28/17 17:41 - Medical History PMH: Anxiety, Asthma, Bipolar Disorder, Depression, Hepatitis, HTN Surgical History: No Surg Hx - [facility] Procedures CLOSURE SKIN & SUBCUTANEOUS NEC (06/21/14) DETOXIFICATION SERVICES FOR SUBSTANCE ABUSE TREATMENT (08/15/17) GROUP DIRECTOR OF CLINICAL SERVICES FOR SUBSTANCE ABUSE TREATMENT, PSYCHOEDUCATION (08/15/17) GROUP DIRECTOR OF CLINICAL SERVICES FOR SUBSTANCE ABUSE, COGNITIVE BEHAVIORAL (08/15/17) INDIV PSYCHOTHERAPY FOR SUBSTANCE ABUSE TREATMENT, SUPPORT (08/15/17) INDIV PSYCHOTHERAPY FOR SUBSTANCE ABUSE, COGNITIV BEHAVIORAL (08/15/17) INDIV PSYCHOTHERAPY FOR SUBSTANCE ABUSE, PSYCHOEDUCATION (08/15/17) MASTOTOMY (10/27/13) Family History: States: No Known Family Hx - Social History Hx Tobacco Use: Yes (Heavy Smoker > 10 Cigarettes Daily; 40 cigarrettes a day) Hx Alcohol Use: No Hx Substance Use: Yes - Immunization History Hx Tetanus Toxoid Vaccination: No Hx Influenza Vaccination: No Hx Pneumococcal Vaccination: No Review Of Systems Constitutional: Negative for: Fever, Chills Cardiovascular: Negative for: Chest Pain Respiratory: Negative for: Shortness of Breath Gastrointestinal: Positive for: Nausea. Negative for: Vomiting, Abdominal Pain Skin: Negative for: Rash Psych: Negative for: Suicidal ideation Physical Exam - Physical Exam Appears: Non-toxic, No Acute Distress Skin: Warm, Dry, No Rash Head: Atraumatic, Normacephalic Eye(s): bilateral: Normal Inspection, PERRL, EOMI Oral Mucosa: Moist Neck: Normal ROM, Supple Cardiovascular: Rhythm Regular Respiratory: Normal Breath Sounds, No Rales, No Rhonchi, No Wheezing Gastrointestinal/Abdominal: Soft, No Tenderness, No Guarding, No Rebound Back: No CVA Tenderness Extremity: Normal ROM, Capillary Refill (<2 seconds ) Neurological/Psych: Oriented x3 ED Course And Treatment - Laboratory Results Result Diagrams: 11/28/17 15:50 11/28/17 15:50 O2 Sat by Pulse Oximetry: 95 (RA) Pulse Ox Interpretation: Normal Medical Decision Making Medical Decision Making: Progress: Patient is pre screened for detox medically cleared accepted by dr hernandes Disposition - Disposition Disposition: HOSPITALIZED Disposition Time: 17:39 Condition: STABLE - Clinical Impression Clinical Impression: Opiate dependence - Scribe Statement The provider has reviewed the documentation as recorded by the Scribrocael Plasencai All medical record entries made by the Scribe were at my direction and personally dictated by me. I have reviewed the chart and agree that the record accurately reflects my personal performance of the history, physical exam, medical decision making, and the department course for this patient. I have also personally directed, reviewed, and agree with the discharge instructions and disposition. Decision To Admit - Pt Status Changed To: Hospital Disposition Of: Inpatient - Admit Certification Admit to Inpatient:: After my assessment, the patient will require hospitalization for at least two midnights. This is because of the severity of symptoms shown, intensity of services needed, and/or the medical risk in this patient being treated as an outpatient. - InPatient: Physician Admission Certification: I certify that this patient requires 2 or more midnights of care for the following reason:: needs detox - . Bed Request Type: Detox Admitting Physician: Magan Hernandes Patient Diagnosis: Opiate dependence
[2017-11-28 15:56] LABS: BASO # 0.1 K/uL (0.0-0.2); BASO % 0.8 % (0.0-2.0); EOS % 0.2 % (0.0-4.0); HEMOGLOBIN 14.6 g/dL (12.0-18.0); LYMPH # 1.5 K/uL (1.0-4.3); LYMPH % 16.9 % (20.0-40.0); MEAN CELL VOLUME 82.8 fL (80.0-94.0); MEAN CORPUSCULAR HEMOGLOBIN 28.4 pg (27.0-31.0); MEAN CORPUSCULAR HGB CONC 34.3 g/dL (33.0-37.0); MEAN PLATELET VOLUME 6.3 fL (7.2-11.7); MONO # 0.6 K/uL (0.0-0.8); MONO % 6.7 % (0.0-10.0); NEUT # 6.9 K/uL (1.8-7.0); NEUT % 75.4 % (50.0-75.0); RBC 5.14 Mil/uL (4.40-5.90); RED CELL DISTRIBUTION WIDTH 13.5 % (11.5-14.5); WHITE BLOOD COUNT 9.1 K/uL (4.8-10.8)
[2017-11-28 16:21] LABS: SQUAMOUS EPITHIAL < 1 /hpf (0-5); URINE BACTERIA FEW (<OCC); URINE BILIRUBIN 1+ (NEGATIVE); URINE CLARITY Hazy (Clear); URINE COLOR Amber (YELLOW); URINE GLUCOSE (UA) NORMAL (Normal); URINE HYALINE CAST >20 /lpf (0-2); URINE NITRATE NEGATIVE (NEGATIVE); URINE PROTEIN 2+ mg/dL (NEGATIVE)
[2017-11-28 16:28] LABS: URINE BLOOD 2+ (NEGATIVE); URINE LEUKOCYTE ESTERASE TRACE Leu/uL (Negative)
[2017-11-28 16:30] LABS: BARBITURATES, UR NEGATIVE (NEGATIVE); BENZODIAZEPINES, UR NEGATIVE (NEGATIVE); OPIATES, UR POSITIVE (NEGATIVE); PHENCYCLIDINE, UR NEGATIVE (NEGATIVE)
[2017-11-28 16:30] LABS: ALB/GLOB RATIO 1.1 (1.0-2.1); ALBUMIN 4.2 g/dL (3.5-5.0); ALT/SGPT 29 U/L (21-72); AST/SGOT 33 U/L (17-59); BLOOD UREA NITROGEN 17 mg/dL (9-20); CALCIUM 8.8 mg/dl (8.6-10.4); GFR AFRICAN-AMERICAN > 60; GFR NON-AFRICAN AMERICAN > 60
[2017-11-28] MEDS ORDERED: Aluminum Hydroxide/Magnesium Hydroxide Susp (30 mL) PO PRN (18:18)
[2017-11-28] MEDS ORDERED: Buprenorphine Hydrochloride 2 mg SL ONE (18:28)
[2017-11-28] MEDS ORDERED: Buprenorphine Hydrochloride 2 mg SL SCH (19:29)
--- NOTE | 2017-11-28 20:15 | PCM.BM ---
<Jailene Kang - Last Filed: 11/28/17 20:14> Treatment Plan Problems - Problems identified on initial assessmt Potential for opiate withdrawal Date Initiated: 11/28/17 Time Initiated: 20:15 Assessment reference: NA Status: Active Treatment assets and liabiliti Patient Assests: ADL independent, negotiates basic needs, cognitively intact Patient Liabilities: substance abuse - Milieu Protocol Maintain good personal hygiene: daily Encourage regular showers, daily Remind patient to perform daily oral care, daily Assist patient to perform ADL's Conduct patient checks and document Observation sheet: Q15 minutes Maintain personal safety: every shift Educate patient to report safety concerns to staff, every shift Monitor environment for contraband/sharps Medication safety: Monitor for expected outcome, potential side effects: every shift, Assess barriers to learning: every shift, Assess readiness for medication education: every shift <Abigail Barahona - Last Filed: 11/29/17 12:40> Family Contact Family involvement: Family/SO is involved Family contact: Patient agrees to contact - Goals for Treatment Patient goals for treatment: Complete detox and transition to o/p Suboxone treatment. Discharge/Continuing Care - Education Needs Education Needs: Patient Medication, Patient Diagnosis/Disease Process, Patient Coping Skills, Patient Anger Management skills, Patient Placement options, Patient Community resources - Discharge Discharge Criteria: Free of agitation, No longer exhibiting s/s of withdrawal, Reduction of target symptoms Discharge to:: Home - Treatment Team Participation Patient/Family/SO Statement: 11/29/17 12:41 "I wanna go across the street and do Suboxone..." Discussed with Family/SO: No Was Patient/Family/SO present at Treatment Team Meeting: Yes <Venu Coffman - Last Filed: 12/02/17 14:47> - Diagnosis (1) Opioid use disorder, severe, dependence Status: Acute Interventions: 12/02/17 14:47 * Assess 7x/week regarding severity of withdrawal * Educate regarding risks, benefits, side effects and alternatives of medications * Use Motivational Interviewing for abstinence * Use CBT for relapse prevention * Medication management for withdrawal symptoms * Encourage medication assisted treatment *
--- NOTE | 2017-11-29 13:20 | PCM.PSYCH ---
Initial Psychiatric Evaluation - Initial Psychiatric Evaluation Type of Admission: Voluntary Legal Status: Capacity Chief Complaint (in patient's own words): "I need detox" History of Present Illness and Precipitating Events: The pt is seen, chart reviewed and case discussed. He is known from several previous admissions. Patient is a 42 year old male, single, has 3 kids who live with their mother, is on disability, and lives alone in an apartment in [place]. However, his and kids come by. He again claims he had problems with suboxone as he "did not understand" how he would use it and kept using heroin "50-60 bags" but still has the suboxone films at home. He allegedly took some and it did not work out. He claims he may do better if he gets the detox. He walked out of ED last week. Pt also used to take 6 mg of Xanax a day, but states that he quit "months ago" and his urine is negative. Pt denies current use of marijuana, alcohol, cocaine , and other illicit substances. Pt states that he has tried experimenting multiple drugs in the past. Smokes 2 ppd Past Psychiatric History: Bipolar d/o, Depression. He was diagnosed with personality d/o by the insurance underwriter previously and again. He displays antisocial/ borderline behavior frequently but looks calmer and more cooperative this time. Medications: Seroquel 200mg HS IP Psychiatric Facility: Once when he was 12 years old Family History: Father and brother were drug abusers, but are no longer using Medical History: Asthma, Hep C, Meniscus tears in past Allergies: Seafood Current Medications: Active Medications Generic Name Dose Route Start Last Admin Trade Name Mcq PRN Reason Stop Dose Admin Acetaminophen 650 mg 11/28/17 18:18 Tylenol 325mg Tab PO Q4H PRN Fever greater than 101 F Al Hydrox/Mg Hydrox/Simethicone 30 ml 11/28/17 18:18 Maalox 30 Ml PO TID PRN Indigestion / Heartburn Clonidine HCl 0.1 mg 11/28/17 18:18 Catapres PO Q8 PRN COWS Score More or Equal to 5 Hydroxyzine HCl 25 mg 11/28/17 18:25 11/28/17 19:08 Atarax PO 25 mg Q6 PRN Administration Agitation Loperamide HCl 2 mg 01/08/18 18:18 Imodium PO Q8 PRN Diarrhea Nicotine 1 patch 11/28/17 19:15 11/29/17 09:24 Nicoderm Cq TD 1 patch DAILY KRISTY Administration Ondansetron HCl 4 mg 11/28/17 18:18 Zofran Tab PO Q8 PRN Nausea/Vomiting Pseudoephedrine HCl 60 mg 11/28/17 18:18 Sudafed Tab PO QID PRN Nasal/Sinus Congestion Quetiapine Fumarate 200 mg 11/28/17 23:45 11/28/17 23:55 Seroquel PO 200 mg HS KRISTY Administration Past Psychiatric History - Past Psychiatric History Previous Treatment History: Intensive Outpatient Pertinent Medical Hx (Current Medical&Sleep Prob, Allergies): Allergies Allergy/AdvReac Type Severity Reaction Status Date / Time FISH Allergy Verified 11/25/17 07:59 seafood Allergy Uncoded 08/15/17 08:55 QUEtiapine [Seroquel] 200 mg PO HS #30 tab 08/19/17 Review of Systems - Neurological Neurological: UNREMARKABLE - Psychiatric Psychiatric: Abnormal Sleep Pattern, Anhedonia, Anxiety, Change in Appetite, Difficulty Concentrating, Irritability. absent: Hallucinations, Homicidal Ideation, Paranoia, Suicidal Ideation Mental Status Examination - Personal Presentation Personal Presentation: Looks stated age - Affect Affect: Constricted - Motor Activity Motor Activity: Calm - Reliability in Providing Information Reliability in Providing Information: Good - Speech Speech: Organized - Mood Mood: Anxious - Formal Thought Process Formal Thought Process: No Impairment - Cognitive Functions Orientation: Person, Place, Situation, Time Sensorium: Alert Attention/Concentration: Attentive Judgement: Intact, as evidence by: Insight regarding need for hospitalization Memory: Recent intact, as evidence by: Ability to recall events of the day, Remote intact, as evidenced by: Abilit to recall sig. life events - Risk Risk: Withdrawal, Diminished functioning - Strength & Assets Inventory Strength & Assets Inventory: Cooperative - Limitations Limitations: Living alone DSM 5 DX - DSM 5 DSM 5 Diagnosis: Opioid withdrawal Opioid use d/o - severe Sedative, hypnotic anxiolytic use d/o - severe, in remission Tobacco use d/o - severe Bipolar 1 d/o - unspecified last episode Personality d/o - unspecified - Recommended/Plan of Treatment Treatment Recommendations and Plan of Treatment: Subutex detox Seroquel 200 mg HS As needed medications Gabapentin for augmentation Attend groups and activities Supportive therapy and psychoeducation [place] for abstinence CBT for relapse prevention Encourage MAT Refer to rehab or IOP Attend self-help groups as well 34 min Projected ELOS: 4-5 days Prognosis: good w treatment - Smoking Cessation Smoking Cessation Initiated: Yes
[2017-11-29] MEDS ORDERED: Buprenorphine Hydrochloride 2 mg SL SCH (18:29)
[2017-11-29] MEDS ORDERED: Buprenorphine Hydrochloride 2 mg SL ONE ×4 (21:10→23:55)
[2017-11-30] MEDS ORDERED: Buprenorphine Hydrochloride 2 mg SL ONE ×2 (00:55→01:07)
[2017-11-30] MEDS: Buprenorphine Hydrochloride 2 mg SL SCH (10:05)
--- NOTE | 2017-11-30 11:51 | PCM.PYCHPN ---
Psychiatric Progress Note - Psychiatric Progress Note Patient seen today, length of contact: 16 mins Patient Chief Complaint: "I am not well" Problems Identified/Issues Discussed: The pt is seen, chart reviewed, case discussed with staff. Patient states he had one bout of emesis following eating. He is also complaining of constipation. He couldn't sleep last night The pt is compliant with medications and reports no side-effects. Symptoms are improving but needs more time to stabilize. After care discussed, support and psychoeducation given. Medication Change: Yes (extra sbx) Medical Record Reviewed: Yes Mental Status Examination - Cognitive Function Orientation: Person, Place, Situation, Time Memory: Intact Attention: WNL Concentration: WNL Association: WNL Fund of Knowledge: WNL - Mood Mood: Other (irate) - Affect Affect: Constricted - Speech Speech: Appropriate - Formal Thought Process Formal Thought Process: No Impairment - Suicidal Ideation Suicidal Ideation: No - Homicidal Ideation Homicidal Ideation: No Goal/Treatment Plan - Goal/Treatment Plan Need for Continued Stay: Discharge may exacerbated symptoms, Severe functional impairment Progress Toward Problem(s) and Goals/Treatment Plan: Subutex detox Seroquel 200 mg HS As needed medications Gabapentin for augmentation Attend groups and activities Supportive therapy and psychoeducation [place] for abstinence CBT for relapse prevention Encourage MAT Refer to rehab or IOP Attend self-help groups as well
[2017-12-01] MEDS: Buprenorphine Hydrochloride 2 mg SL SCH (09:20)
--- NOTE | 2017-12-01 14:44 | PCM.PYCHPN ---
Psychiatric Progress Note - Psychiatric Progress Note Patient seen today, length of contact: 16 mins Patient Chief Complaint: "I am still withdrawing" Problems Identified/Issues Discussed: The pt is seen, chart reviewed, case discussed with staff. Support given, CBT and NM used briefly No new symptoms reported, improving slowly and needs more time No SEs from medications, risks discussed. After care discussed - CRC and suboxone Medication Change: Yes (extra sbx) Medical Record Reviewed: Yes Mental Status Examination - Cognitive Function Orientation: Person, Place, Situation, Time Memory: Intact Attention: WNL Concentration: WNL Association: WNL Fund of Knowledge: WNL - Mood Mood: Other (less irate) - Affect Affect: Constricted - Speech Speech: Appropriate - Formal Thought Process Formal Thought Process: No Impairment - Suicidal Ideation Suicidal Ideation: No - Homicidal Ideation Homicidal Ideation: No Goal/Treatment Plan - Goal/Treatment Plan Need for Continued Stay: Discharge may exacerbated symptoms, Severe functional impairment Progress Toward Problem(s) and Goals/Treatment Plan: Subutex detox Seroquel 200 mg HS increased to 300 mg Zoloft started again As needed medications Gabapentin for augmentation Attend groups and activities Supportive therapy and psychoeducation [place] for abstinence CBT for relapse prevention Encourage MAT Refer to rehab or IOP Attend self-help groups as well
[2017-12-01] MEDS ORDERED: Buprenorphine Hydrochloride 2 mg SL ONE (18:00)
[2017-12-02] MEDS: Buprenorphine Hydrochloride 2 mg SL SCH ×2 (09:59→18:00)
--- NOTE | 2017-12-02 12:49 | PCM.PYCHPN ---
Psychiatric Progress Note - Psychiatric Progress Note Patient seen today, length of contact: 16 mins Patient Chief Complaint: "So so" Problems Identified/Issues Discussed: The pt is seen, chart reviewed, case discussed with staff. The pt is compliant with medications and reports no side-effects. Symptoms are improving but needs more time to stabilize. Detox extended to Tuesday AM due to ongoing sxs - he gets a PM dose of 2 mg After care discussed, support and psychoeducation given. Medication Change: Yes (extra sbx) Medical Record Reviewed: Yes Mental Status Examination - Cognitive Function Orientation: Person, Place, Situation, Time Memory: Intact Attention: WNL Concentration: WNL Association: WNL Fund of Knowledge: WNL - Mood Mood: Other (less irate) - Affect Affect: Constricted - Speech Speech: Appropriate - Formal Thought Process Formal Thought Process: No Impairment - Suicidal Ideation Suicidal Ideation: No - Homicidal Ideation Homicidal Ideation: No Goal/Treatment Plan - Goal/Treatment Plan Need for Continued Stay: Discharge may exacerbated symptoms, Severe functional impairment Progress Toward Problem(s) and Goals/Treatment Plan: Subutex detox Seroquel 200 mg HS increased to 300 mg Zoloft started again As needed medications Gabapentin for augmentation Attend groups and activities Supportive therapy and psychoeducation [place] for abstinence CBT for relapse prevention Encourage MAT Refer to rehab or IOP Attend self-help groups as well
[2017-12-03] MEDS: Buprenorphine Hydrochloride 2 mg SL SCH ×2 (09:21→17:21)
--- NOTE | 2017-12-03 10:14 | PCM.PYCHPN ---
Psychiatric Progress Note - Psychiatric Progress Note Patient seen today, length of contact: 16 mins Patient Chief Complaint: I am feeling little better.' Problems Identified/Issues Discussed: Patient seen and evaluated, chart reviewed and discussed with the nurse. The patient reports improvement in his mood and reports improvement in withdrawal symptoms. He still reports anxiety but as per the nurse patient is improving. Patient is scheduled to be discharged tomorrow. He denies any suicidal ideation or homicidal ideation. Patient is taking medications and denies any side effects. Symptoms are improving but needs more time for stabilization. Supportive therapy and psychoeducation were given. Medication Change: Yes (extra sbx) Medical Record Reviewed: Yes Mental Status Examination - Cognitive Function Orientation: Person, Place, Situation, Time Memory: Intact Attention: WNL Concentration: WNL Association: WNL Fund of Knowledge: WNL - Mood Mood: Other (less irate) - Affect Affect: Constricted - Speech Speech: Appropriate - Formal Thought Process Formal Thought Process: No Impairment - Suicidal Ideation Suicidal Ideation: No - Homicidal Ideation Homicidal Ideation: No Goal/Treatment Plan - Goal/Treatment Plan Need for Continued Stay: Discharge may exacerbated symptoms, Severe functional impairment Progress Toward Problem(s) and Goals/Treatment Plan: Opioid withdrawal Opioid use d/o - severe Sedative, hypnotic anxiolytic use d/o - severe, in remission Tobacco use d/o - severe Bipolar 1 d/o - unspecified last episode Personality d/o - unspecified Subutex detox Seroquel 200 mg HS As needed medications Gabapentin for augmentation Attend groups and activities Supportive therapy and psychoeducation [place] for abstinence CBT for relapse prevention Encourage MAT Refer to rehab or IOP Attend self-help groups as well - Smoking Cessation Smoking Cessation Initiated: No
--- NOTE | 2017-12-03 23:48 | PCM.FALL ---
Post Fall Progress Note - Post Fall Fall Date: 12/03/17 Fall Time: 11:30 Description of Fall: [facility] Called at 23:30 on 7D. Patient was found sitting in the chair comfortably. Per patient, he was rising from a seated position attempting to change the channel on the television when he got dizzy and tripped over the side of the chair and fell. Patient just recently got his evening dose of 300mg Seroquel at 22:41. He states that it has made him dizzy in the past. - Post Fall Exam Vital Sign: Temp Pulse Resp BP Pulse Ox 98.4 F 74 18 138/80 98 12/03/17 20:31 12/03/17 20:31 12/03/17 20:31 12/03/17 20:31 12/03/17 20:31 Skull Exam: Negative for: Scalp wound, Scalp hematoma, Scalp depression, Ridge in skull Eye Exam: Positive for: Pupils equal, Pupils reactive Ear Exam: Negative for: Discharge, Bleeding Nose Exam: Negative for: Discharge, Bleeding Skin Exam: Negative for: Colour, Lacerations, Grazes, Bruising Mouth Exam: Negative for: Tongue bitten, Teeth dislodge Neck Exam: Negative for: Tenderness, Tingling, Weakness Spinal Exam: Negative for: Tenderness, Tingling, Weakness Chest Exam: Negative for: Difficulty breathing, Tenderness in collar bones, Tenderness in ribs Abdomen Exam: Negative for: Tenderness Pelvic Exam: Negative for: Tenderness Arm Exam: Negative for: Deformity Leg Exam: Negative for: Deformity Impression/Plan: Vitals: T-97.6, Pulse 123, RR-20, BP- 117/78, 02=98% on RA. Random Blood Glucose - 106 Patient was tachycardic with a regular rhythym on exam. Fall likely medication induced mixed with mechanical. Patient stated that he has gotten dizzy in the past due to seroquel. Pulse rate steadily decreased during exam to low 100's.
[2017-12-04 06:32] VITALS: O2SAT 97
[2017-12-04] MEDS ORDERED: Buprenorphine Hydrochloride 2 mg SL ONE (09:00)
[2017-12-04 10:07] VITALS: BP 126/86; PULSE 82; RESP 20; TEMP 98.6
--- NOTE | 2017-12-04 12:36 | PCM.PYCHDC ---
Mental Status Examination - Mental Status Examination Orientation: Person, Place, Situation, Time Memory: Intact Mood: Neutral Affect: Constricted Speech: Soft Attention: WNL Concentration: WNL Association: WNL Fund of Knowledge: WNL Formal Thought Process: No Impairment Description of patient's judgement and insight: good, fair Psychotic Thoughts and Behaviors: denies any AVH Suicidal Ideation: No Current Homicidal Ideation?: No Discharge Summary - Discharge Note Reason for Hospitalization: Patient is a 42 year old male, single, has 3 kids who live with their mother, is on disability, and lives alone in an apartment in [place]. However, his and kids come by. He again claims he had problems with suboxone as he "did not understand" how he would use it and kept using heroin "50-60 bags" but still has the suboxone films at home. He allegedly took some and it did not work out. He claims he may do better if he gets the detox. He walked out of ED last week. Pt also used to take 6 mg of Xanax a day, but states that he quit "months ago" and his urine is negative. Pt denies current use of marijuana, alcohol, cocaine , and other illicit substances. Pt states that he has tried experimenting multiple drugs in the past. Smokes 2 ppd Past Psychiatric History: Bipolar d/o, Depression. He was diagnosed with personality d/o by the technical publications writer previously and again. He displays antisocial/ borderline behavior frequently but looks calmer and more cooperative this time. Medications: Seroquel 200mg HS IP Psychiatric Facility: Once when he was 12 years old Family History: Father and brother were drug abusers, but are no longer using Medical History: Asthma, Hep C, Meniscus tears in past Consultations:: List each consultation separately and include: 1. Reason for request. 2. Findings. 3. Follow-up Summary of Hospital Course include:: 1. Description of specific treatment plan utilized for patients during their course of treatmen. 2. Summarize the time- course for resolution of acute symptoms and/or regressed behaviors. 3. Describe issues identified and worked on during hospitalization. 4. Describe medication utilized. 5. Describe medical problems identified and treated. 6. Reassessment of suicide risk - Final Diagnosis (DSM 5) Condition upon Discharge: STABLE DSM 5: Opioid withdrawal Opioid use d/o - severe Sedative, hypnotic anxiolytic use d/o - severe, in remission Tobacco use d/o - severe Bipolar 1 d/o - unspecified last episode Personality d/o - unspecified Disposition: HOME/ ROUTINE Follow-up Treatment Plan: Opioid withdrawal Opioid use d/o - severe Sedative, hypnotic anxiolytic use d/o - severe, in remission Tobacco use d/o - severe Bipolar 1 d/o - unspecified last episode Personality d/o - unspecified Subutex detox Seroquel 200 mg HS As needed medications Gabapentin for augmentation Attend groups and activities Supportive therapy and psychoeducation [place] for abstinence CBT for relapse prevention Encourage MAT Refer to rehab or IOP Attend self-help groups as well
== END 2017-12-04 11:30 | disposition home or self-care (01) | DRG 745 ==
LOC: C.ER 14:40 → C.9E 17:20 → C.7D 17:34
PROVIDERS: ADMIT Psychiatry & Neurology Psychiatry; ATTEND Psychiatry & Neurology Psychiatry
PROC: HZ2ZZZZ Detoxification Services for Substance Abuse Treatment (ICD-10-PCS; principal; 2017-11-28)
DX: F11.23 Opioid dependence with withdrawal (principal); F31.9 Bipolar disorder, unspecified; F41.9 Anxiety disorder, unspecified; I10 Essential (primary) hypertension; J45.909 Unspecified asthma, uncomplicated; K59.00 Constipation, unspecified; Z72.0 Tobacco use